=== PATIENT | male | born 1965 | race Caucasian/White ===

== ENCOUNTER → 2016-07-20 | Outpatient (CLI) | payer BC | END | disposition home or self-care (01) | LOC: LABPAT 14:41 | PROVIDERS: ATTEND Orthopaedic Surgery | DX: Z01.810 Encounter for preprocedural cardiovascular examination (principal); Z01.812 Encounter for preprocedural laboratory examination; M17.12 Unilateral primary osteoarthritis, left knee | CPT/HCPCS: 85610; 85730; 87070 ==

== ENCOUNTER 2016-07-25 13:55 | Day surgery (SDC) | payer BC ==
[2016-07-20 10:51] VITALS: BMI 32.6
--- NOTE | 2016-07-24 11:24 | HP ---
DATE OF ADMISSION: CHIEF COMPLAINT: Left knee pain. 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 He notes increasing swelling and stiffness with activity. He has tried medications and injections with only partial temporary relief. PAST MEDICAL HISTORY: Significant for arthritis, gout and hypertension. PAST SURGICAL HISTORY: Negative. CURRENT MEDICATIONS: 1. Allopurinol. 2. Motrin. 3. Dwight. 4. Indocin. He denies drug allergies. FAMILY HISTORY: Significant for cancer and hypertension. SOCIAL HISTORY: Significant for previous alcohol use. A 16-point review of systems otherwise reviewed and is noncontributory. On examination, the patient is approximately 5 foot 8, 195 pounds of endomorphic habitus. HEENT exam is nonfocal. Neck is supple. He has painless passive motion of his left hip. Straight leg raise is negative. Active motion left knee -15 to 100 degrees of flexion. He is tender about the medial joint line. Collaterals are stable, Mark is negative, Akbar's elicits medial pain. He has genu varum alignment. His distal neurovascular exam appears be intact in the left lower extremity. Previous weight-bearing notch, lateral, and merchant views of left knee obtained in the office show severe medial and patellofemoral compartment narrowing with genu varum deformity. IMPRESSION: Left knee severe osteoarthrosis - primary. RECOMMENDATION: I talked to the patient at length regarding his treatment options. At this point, he opts to proceed with surgery. We will plan to proceed with left total knee arthroplasty. With the degree of deformity, will likely have to proceed with a more constrained implant. Risks and benefits are discussed at length in layman's terms. We will institute DVT prophylaxis postoperatively. The patient underwent preoperative cardiac evaluation by Dr. South.
[~2016-07-25 13:55] MED LIST: ACETAMINOPHEN TAB 500 MG TAB PO ONE; DEXAMETHASONE SOD PHOSPHATE 10 MG/ML 1 ML VIAL IV ONE; HYDROmorphone 1 MG/ML 1 ML SYRINGE IVP PRN; LACTATED RINGERS 1,000 ML IV SCH; MELOXICAM 7.5 MG TAB PO ONE; MIDAZOLAM 2 MG/2 ML VIAL IV PRN; ONDANSETRON 4 MG/2 ML VIAL IVP ONE; SCOPOLAMINE 1.5MG/72HR PATCH TRANSDERM ONE; TRANEXAMIC ACID 1,000 MG in SODIUM CHLORIDE 0.9% 100 ML IVPB ONE; ceFAZolin 2 GM in SODIUM CHLORIDE 0.9% 100 ML IVPB ONE
[2016-07-25 14:26] VITALS: PULSE 90; RESP 18; TEMP 97.9
[2016-07-25] MEDS ORDERED: LIDOCAINE 1% 20 ML VIAL (10MG/ML) FOR IV START INTRADERMA ONE (14:39)
[2016-07-25 14:59] VITALS: BP 182/104
== END 2016-07-25 15:25 | disposition home or self-care (01) ==
LOC: 2ORMAIN 13:55 → OR 13:55 → UNDOADMIN 13:55 → OR 15:25 → UNDODISIN 15:25 → EDSTATUS 15:45
PROVIDERS: ATTEND Orthopaedic Surgery
DX: M17.12 Unilateral primary osteoarthritis, left knee (principal); I10 Essential (primary) hypertension; Z53.09 Procedure and treatment not carried out because of other contraindication; M10.9 Gout, unspecified; M21.162 Varus deformity, not elsewhere classified, left knee; Z79.1 Long term (current) use of non-steroidal anti-inflammatories (NSAID); Z79.899 Other long term (current) drug therapy; Z79.82 Long term (current) use of aspirin; Z82.49 Family history of ischemic heart disease and other diseases of the circulatory system
CPT/HCPCS: 85610; 85730; 87070

== ENCOUNTER 2016-08-08 12:11 | Inpatient (IN) | payer BC ==
[~2016-08-08 12:11] MED LIST changes: -LACTATED RINGERS 1,000 ML IV SCH; +LIDOCAINE 1% 20 ML VIAL (10MG/ML) FOR IV START INTRADERMA PRN
[2016-08-08] MEDS: LACTATED RINGERS 1,000 ML IV SCH (12:42)
[2016-08-08] MEDS ORDERED: ROPIVACAINE 1,100 MG, SODIUM CHLORIDE 0.9% 330 ML MISCELLANE PRN ×2 (13:13)
--- NOTE | 2016-08-08 13:15 | P.ONQ ---
Anesthesiology Proc Note - PNB - Peripheral Nerve Block Performed Left Adductor Canal Indication: Acute Post-Operative Pain, Requested by physician (Jc) Sedation Type: Sedate with meaningful contact maintained Preparation: Sterile Dressing Position: Supine Catheter: Indwelling Needle Types: On-Q Needle Size: 100mm (4") Needle Gauge: 20 Technique: Ultrasound Injectate: 0.5% Ropivacaine (see comment for volume) (20cc) Blood Aspirated: No Pain Paresthesia on Injection Noted: No Resistance on Injection: Normal Events: Uneventful and Well Tolerated
[2016-08-08] MEDS ORDERED: MIDAZOLAM 2 MG/2 ML VIAL ONE (14:02)
[2016-08-08] MEDS ORDERED: fentaNYL (PF) 50 MCG/ML 2 ML AMP ONE (14:02)
[2016-08-08] MEDS ORDERED: ePHEDrine 50 MG/ML 1 ML AMP ONE (14:02)
[2016-08-08] MEDS ORDERED: TRANEXAMIC ACID 1,000 MG/10 ML VIAL ONE (14:02)
[2016-08-08] MEDS ORDERED: PROPOFOL 10 MG/ML 20 ML VIAL IV ONE (14:02)
[2016-08-08] MEDS ORDERED: SODIUM CHLORIDE 0.9% 100 ML BAG ONE (14:02)
[2016-08-08] MEDS ORDERED: PHENYLEPHRINE-0.9% NACL SYG 1 MG/10 ML SYRINGE ONE (14:02)
[2016-08-08] MEDS ORDERED: ceFAZolin 3,000 MG in SODIUM CHLORIDE 0.9% IRRIGATIO 3,000 ML IRRIGATION ONE (14:43)
[2016-08-08] MEDS ORDERED: LACTATED RINGERS 1,000 ML IV ONE ×2 (14:43→16:00)
[2016-08-08] MEDS ORDERED: ROPIVACAINE 246.25 MG, EPINEPHrine 0.5 MG, KETOROLAC 30 MG, cloNIDine HCL/PF 80 MCG, WA... MISCELLANE ONE ×5 (15:11)
[2016-08-08] MEDS ORDERED: NALOXONE 0.4 MG/ML 1 ML VIAL IV PRN (16:13)
[2016-08-08] MEDS ORDERED: HYDROmorphone 1 MG/ML 1 ML SYRINGE IVP PRN ×2 (16:13)
[2016-08-08] MEDS ORDERED: MAGNESIUM HYDROXIDE 2,400 MG/10 ML CUP PO PRN (16:13)
[2016-08-08] MEDS ORDERED: HYDROcodone/APAP 10-325MG 1 EACH TAB PO PRN (16:13)
[2016-08-08] MEDS ORDERED: ONDANSETRON 4 MG/2 ML VIAL IVP PRN (16:13)
--- NOTE | 2016-08-08 16:47 | P.OP ---
Date of Procedure: 08/08/16 Preoperative Diagnosis: Left knee severe tricompartmental osteoarthrosis-primary Postoperative Diagnosis: Same Procedure(s) Performed: Left total knee aytbjjyeocut-avnhjvjy-icmrfseoe substituting Implants: Depuy Attune size 8 cemented femoral component, size 7 cemented tibial component , 11 mm articular surface, 38 mm cemented patellar component. This is a posterior stabilized implant. Anesthesia: spinal Surgeon: Filipe Greene Sales Office Administrator #1: Carlos Patel Estimated Blood Loss (ml): 75 Pathology: other (Bone fragments) Condition: stable Disposition: PACU Indications for Procedure: The patient is a 51-year-old male presents with progressive left knee pain secondary to osteoarthrosis despite extensive conservative measures. A discussion of the risks and benefits of operative intervention versus continued conservative measures was made with the patient. He opted to proceed with surgery. Operative risks to include infection, neurovascular injury, development of blood clots, possible component loosening, possible component failure need for subsequent procedures was discussed. Informed consent was obtained. Operative Findings: Severe tricompartmental osteoarthrosis with genu varum deformity Description of Procedure: The patient was brought to the operating room, and after induction of spinal anesthesia the left lower extremity was prepped and draped in a normal fashion. The tourniquet was inflated to 270 mm marker. A longitudinal incision extending 3 finger breadths above the superior pole of the patella extending to the medial aspect of the tibial tubercle was then made. The skin and subcutaneous tissues were divided sharply. Electrocautery was used for hemostasis. A medial parapatellar arthrotomy is performed. The medial soft tissues to include the superficial and deep portions of the medial collateral ligament as well as the medial hamstring tendons were elevated subperiosteally. The posterior medial capsule was also elevated and the osteophytes of the proximal medial tibial carefully removed. The patella was everted. A portion of the retropatellar fat pad was excised sharply. The knee was then flexed. The anterior cruciate ligament was already ruptured. Blunt retractors were placed. A starting hole was made in the distal femur 1 cm anterior to the posterior cruciate ligament origin. An intramedullary femoral guide was inserted planning on 5 valgus distal cut was 9 mm distal resection. The cutting block was pinned in place. The anterior, posterior, and chamfer cuts were then made. The bone fragments were then removed. The box cut was then made with the reciprocating saw for the posterior stabilized implant. The trial component was then placed and was fully seated. There was good medial to lateral and anterior to posterior fit. The distal peg holes were drilled. The trial component was removed. Attention was then paid towards preparing the proximal tibia. An extra medullary guide was utilized in line with the tibial shaft and second metatarsal distally. I planned on a 0 posterior slope. I also planned on 2 mm resection from the medial compartment. The cutting block was pinned in place. The proximal tibial cut was then made. The tibia sized most appropriately at a size 7. An additional 2 mm was resected as this was not adequate resection. The remnants of the medial lateral menisci were excised at the capsular junction with electrocautery. The posterior osteophytes off the distal femur were carefully removed with a curved osteotome. The trial femoral and tibial components were placed along with an 11 mm articular surface. I did piecrust a portion of the medial collateral ligament for additional medial release. I was able to obtain full flexion and extension with good stability with varus and valgus stress. After several flexion and extension cycles, the tibial rotation was marked with Dr. dupree in line with the medial one third of the tibial tubercle. Attention was then paid towards preparing the patella. A patella reamer was utilized taking this down to 14 mm of bone stock. A good flush cut was made. The patella sized most appropriately 38 mm. The peg holes were drilled. The trial component was placed and the knee was taken through range of motion. The trial components were then removed. The posterior soft tissues were injected with ropivacaine. The flexion and extension gaps were checked and felt to be symmetric. I made several additional drill holes through the posterior medial tibia facilitate cement interdigitation. The bony surfaces were prepared with pulsatile lavage and then dried. The tibial component was then cemented in placed and was fully seated. Excess cement was removed. The femoral component cemented placed and was fully seated. Excess cement was removed. The trial 11 mm articular surface was placed and the knee was put in full extension. The patella component cemented in placed and was fully seated. After the cement especially hardened, the knee was again taken through range of motion. Again I was stable in flexion and extension with varus and valgus stress. The trial articular surface was removed and the final 11 mm articular surface was placed. This was fully seated. Care was taken to avoid any soft tissue interposition. Pulsatile lavage was utilized. The medial parapatellar arthrotomy was closed with #2 Ethibond suture. Prior to final arthrotomy closure the tourniquet was deflated with approximately 75 minutes total tourniquet time. The second dose of IV TXA was given. The subcutaneous tissues were reapproximated with interrupted 2-0 Vicryl sutures. The skin was reapproximated with 3-0 subcuticular strata fix suture. Skin tape and adhesive was applied. A sterile dressing was applied. The patient was awoken from sedation and transferred to the recovery room in good condition. Blood loss was estimated 75 mL. No complications were incurred. Sponge and needle counts were correct at the end the case.
--- NOTE | 2016-08-08 17:10 | XR ---
EXAMINATION TYPE: XR knee limited LT DATE OF EXAM: 08/08/2016 4:52 PM COMPARISON: NONE HISTORY: 51-year-old male evaluate for postoperative abnormality and alignment TECHNIQUE: Portable AP and crosstable lateral views FINDINGS: Images show placement of left total knee arthroplasty. Both distal femoral and proximal tibial compon ents of the prosthesis appear well seated without periprosthetic fracture. There is anterior soft tis jojo swelling and soft tissue gas as well as intra-articular air and joint effusion compatible with re cent operation. Surgical drain is in place. IMPRESSION: Uncomplicated postoperative appearance left total knee arthroplasty.
[2016-08-08 17:50] VITALS: BMI 31.4
[2016-08-08] MEDS: traMADol 50 MG TAB PO SCH ×2 (18:12→22:20)
[2016-08-08] MEDS: hydrOXYzine PAMOATE 25 MG CAP PO PRN (19:19)
[2016-08-08] MEDS: HYDROcodone/APAP 10-325MG 1 EACH TAB PO PRN (19:20)
[2016-08-08] MEDS ORDERED: SENNOSIDES-DOCUSATE SODIUM 1 EACH TAB PO SCH (21:00)
[2016-08-08] MEDS ORDERED: ALLOPURINOL 100 MG TAB PO PRN (21:49)
[2016-08-08] MEDS: amLODIPine 5 MG TAB PO SCH (22:20)
[2016-08-08] MEDS: LOSARTAN 50 MG TAB PO SCH (22:20)
[2016-08-08] MEDS: METOPROLOL TARTRATE 50 MG TAB PO SCH (22:20)
[2016-08-09] MEDS: hydrOXYzine PAMOATE 25 MG CAP PO PRN ×3 (00:25→12:47)
[2016-08-09] MEDS: ceFAZolin 2 GM in SODIUM CHLORIDE 0.9% 100 ML IVPB SCH ×2 (00:26→07:26)
[2016-08-09] MEDS: HYDROcodone/APAP 10-325MG 1 EACH TAB PO PRN ×3 (00:26→12:45)
[2016-08-09 00:39] VITALS: RESP 16
[2016-08-09 07:17] LABS: Basophils % (A) 0 %; CH 33.1; CHCM 33.6; Eosinophils # (A) 0.1 k/uL (0-0.7); Eosinophils % (A) 0 %; HCT 39.3 % (39.0-53.0); HDW 2.51; HGB 13.1 gm/dL (13.0-17.5); Luc # (Auto) 0.13; Luc % (Auto) 1; Lymphocytes # (A) 1.7 k/uL (1.0-4.8); Lymphocytes % (A) 9 %; MCH 32.9 pg (25.0-35.0); MCHC 33.3 g/dL (31.0-37.0); MCV 98.8 fL (80.0-100.0); Mean Platelet Volume 6.7; Monocytes # (A) 1.1 k/uL (0-1.0); Monocytes % (A) 6 %; Neutrophils # (A) 15.2 k/uL (1.3-7.7); Neutrophils % (A) 84 %; RBC 3.97 m/uL (4.30-5.90); RDW 13.3 % (11.5-15.5); WBC 18.2 k/uL (3.8-10.6); WBC (Perox) 19.17
[2016-08-09] MEDS: METOPROLOL TARTRATE 50 MG TAB PO SCH (07:24)
[2016-08-09] MEDS: traMADol 50 MG TAB PO SCH ×2 (07:24→12:46)
[2016-08-09] MEDS: amLODIPine 5 MG TAB PO SCH (07:24)
[2016-08-09] MEDS: LOSARTAN 50 MG TAB PO SCH (07:24)
[2016-08-09] MEDS: LACTATED RINGERS 1,000 ML IV SCH (07:26)
--- NOTE | 2016-08-09 07:30 | P.PN ---
Progress Note - Text The patient is status post, left adductor canal catheter placement. The catheter was placed for postoperative pain control, status post total left arthroplasty. Ropivacaine 0.2% is infusing at 8 mLs per hour. The patient has no complaints of left lower extremity numbness or weakness. Patient's VAS score is 0 -10. Assessment: Patient's adductor canal catheter is in place and working appropriately. Plan: continue infusion and adjust it as needed.
[2016-08-09 07:44] VITALS: BP 118/79; PULSE 68; TEMP 97.6
[2016-08-09] MEDS ORDERED: HYDROCHLOROTHIAZIDE 25 MG TAB PO SCH (09:00)
[2016-08-09] MEDS ORDERED: RIVAROXABAN 10 MG TAB PO SCH (09:00)
[2016-08-09] MEDS ORDERED: FAMOTIDINE 20 MG TAB PO SCH (09:00)
--- NOTE | 2016-08-09 11:12 | P.DS ---
Providers Date of admission: 08/08/16 12:11 Expected date of discharge: 08/09/16 Attending physician: Filipe Greene Consults: 08/08/16 16:13 Consult Physician Routine Consulting Provider: Zayda Carr Consult Reason/Comments: Medical management Do you want consulting provider notified?: Yes Primary care physician: Dayne Alarcon [facility] Course: Date of admission: 08/08/2016 Date of discharge: 08/09/2016 Admission diagnosis: Status post left total knee arthroplasty Discharge diagnosis: Same Attending physician: Dr. Greene Surgical procedures: Left total knee arthroplasty Brief history: Patient is a 51-year-old male with a history of progressive primary left knee osteoarthritis. At this point patient has failed conservative treatment measures and has opted to proceed with a elective total knee arthroplasty. Hospital course: Details of patient's surgery can be found in operative report. Patient tolerated the procedure well and was subsequently transported to orthopedic floor. Patient's orthopeidc and medical care was provided daily. Patient had daily laboratory tests performed for evaluation of overall blood counts. Patient had daily physical therapy to include strengthening range of motion as well as education with walker ambulation. Patient was treated with Xarelto for their postoperative DVT prophylaxis during their inpatient stay. Patient was noted to have a relatively uneventful postoperative course. Patient reported satisfactory pain control with oral pain medications by postoperative day 0. Patient showed satisfactory progress with physical therapy. Patient moved steadily through the program and had no difficulty meeting the goals by postoperative day 1. Given patient's otherwise satisfactory course and having met physical therapy goals, plan is to discharge patient home on postoperative day 1. Discharge condition/disposition: Patient will be discharged home in stable condition. Discharge medications: Instructions are given on resumption of patient's normal daily medications per primary care recommendation, in addition patient will be prescribed [place] 10 mg/325 mg, tramadol 50 mg, Colace 100 mg, Pepcid 20 mg, Xarelto 10 mg. Discharge instructions: 1. Wound care and infection precautions, keep incision dry and covered while showering, no lotions, creams, moisturizers. No soaking, tubs, pools, hottubs. Do not scrub over the incision. 2. Weight-bear as tolerated with walker / cane until follow-up. 3. Ice and elevate when necessary. Do not exceed 20 minutes per hour with ice pack. 4. Utilize compression sleeve until seen at first follow up appointment. 5. Visiting nursing care. 6. Home physical therapy including home CPM. 7. Pain meds and anticoagulants per prescription. 8. Pain medication has potential to cause constipation. Increase oral fluid and fiber intake. Contact primary care provider if you have not had a bowel movement within 48 hours after discharge 9. No anti-inflammatory medication until discussed at first post operative visit, this including Motrin, Aleve, Mobic, Diclofenac. 10. Follow up in office at 2 weeks postop with Torey Patel PA-C 11. Follow up with your primary care doctor 7-10 days after discharge. 12. Contact [facility] with any questions, . Procedures: Left total knee arthroplasty Patient Condition at Discharge: Good Plan - Discharge Summary New Discharge Prescriptions: Docusate [Colace] 100 mg PO DAILY #20 capsule Famotidine [Pepcid] 20 mg PO DAILY #20 tablet Hydrocodone/Acetaminophen [[place] 10-325] 1 each PO Q6H PRN #60 tab PRN Reason: Pain Rivaroxaban [Xarelto] 10 mg PO DAILY #12 tab traMADol HCl [Ultram] 50 mg PO Q6H PRN #40 tab PRN Reason: Pain Discharge Medication List Allopurinol [Zyloprim] 100 mg PO DAILY PRN 07/20/16 [History] Aspirin 81 mg PO DAILY 07/20/16 [History] HYDROcodone/APAP 10-325MG [[place] 10-325] 1 tab PO Q6H PRN 07/20/16 [History] Indomethacin [Indocin] 50 mg PO BID PRN 07/20/16 [History] amLODIPine [Norvasc] 5 mg PO BID 08/07/16 [History] Hydrochlorothiazide [Hydrodiuril] 25 mg PO DAILY 08/08/16 [History] Losartan Potassium [Cozaar] 50 mg PO BID 08/08/16 [History] Metoprolol Tartrate [Lopressor] 50 mg PO BID 08/08/16 [History] Rivaroxaban [Xarelto] 10 mg PO DAILY #12 tab 08/08/16 [Rx] Docusate [Colace] 100 mg PO DAILY #20 capsule 08/09/16 [Rx] Famotidine [Pepcid] 20 mg PO DAILY #20 tablet 08/09/16 [Rx] Hydrocodone/Acetaminophen [[place] 10-325] 1 each PO Q6H PRN #60 tab 08/09/16 [Rx] traMADol HCl [Ultram] 50 mg PO Q6H PRN #40 tab 08/09/16 [Rx] Follow up Appointment(s)/Referral(s): Carlos Patel 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 Wound care and infection precautions, keep incision dry and covered while showering, no lotions, creams, moisturizers. No soaking, pools, hot tubs. Do not scrub over incision. 2. Weight-bear as tolerated with walker / cane until follow-up. 3. Ice and elevate when necessary. Do not exceed 20 minutes per hour with ice pack. 4. Utilize compression sleeve until seen at first follow up appointment. 5. Visiting nursing care. 6. Home physical therapy including home CPM. 7. Pain meds and anticoagulants per prescription. 8. Pain medication has potential to cause constipation. Increase oral fluid and fiber intake. Contact primary care provider if you have not had a bowel movement within 48 hours after discharge. 9. No anti-inflammatory medication until discussed at first post operative visit, this including Motrin, Aleve, Mobic, Diclofenac. 10. Follow up in office at 2 weeks postop with Torey Patel PA-C 11. Follow up with your primary care doctor 7-10 days after discharge. 12. Contact [facility] with any questions, . pt has Xarupalito in the pharmacy, pt has a $30.00 co-pay Discharge Disposition: HOME WITH HOME HEALTH SERVICES
--- NOTE | 2016-08-09 11:12 | P.PN ---
Subjective Principal diagnosis: s/p left tka Patient doing well at this point, no acute complaints. Pain well controlled. He has ambulated well at this point, urinary catheter removed. Denies chest pain, shortness of breath, fever or chills. Objective - Vital Signs Vital signs: Vital Signs Temp 97.6 F 08/09/16 07:00 Pulse 68 08/09/16 07:00 Resp 16 08/09/16 07:00 BP 118/79 08/09/16 07:00 Pulse Ox 97 08/09/16 07:00 Intake & Output 08/08/16 08/09/16 08/09/16 18:59 06:59 18:59 Intake Total 2311 240 Output Total 150 900 200 Balance 2161 -900 40 Weight 93.894 kg Intake: IV 2311 Oral 240 Output: Drainage 300 Left Knee 300 Urine 75 600 200 Uretheral (Rollins) 200 Estimated Blood Loss 75 Other: Voiding Method Indwelling Catheter Indwelling Catheter # Bowel Movements 0 - Exam Left lower extremity: Incision is clean dry and intact. Calf soft no tenderness with palpation. Plantar flexion, dorsiflexion, EHL, FHL intact. Sensory exam to lite touch intact, dorsal pedis pulse is 2+. - Labs CBC & Chem 7: 08/09/16 06:47 Labs: Abnormal Lab Results - Last 24 Hours (Table) 08/09/16 Range/Units 06:47 WBC 18.2 H (3.8-10.6) k/uL RBC 3.97 L (4.30-5.90) m/uL Neutrophils # 15.2 H (1.3-7.7) k/uL Monocytes # 1.1 H (0-1.0) k/uL Assessment and Plan Plan: Assessment: 1. Post op day #1 s/p left tka Plan: 1. Pain control, continue use of oral medication 2. Daily dressing changes 3. Ice and elevate 4. Encourage incentive spirometer 5. GI and DVT prophylaxis, continue Xarelto 6. Medical management 7. Likely discharged home today Time with Patient: Less than 30
--- NOTE | 2016-08-09 21:38 | P.CONS ---
History of Present Illness - Reason for Consult Consult date: 08/09/16 Medical management Requesting physician: Filipe Greene - History of Present Illness This is a 51-year-old gentleman patient of Dr. Hernandez and Dr. Ng, he has underlying history of hypertension, diastolic dysfunction followed by Dr. South, he was admitted to the service of the orthopedics to have a left total knee arthroplasty done after years off failing conservative measures and ongoing instability of the knee, previous sports injury in the past. Patient's doing well clinically he is currently receiving Xarelto for DVT prophylaxis, incentive spirometry, no chest pain no shortness of breath, pain is controlled and has a pain pump placed on the left thigh for which he is going to go home for additional pain control Review of Systems Constitutional: Reports as per HPI, Denies anorexia, Denies chills, Denies chronic headaches, Denies chronic pain, Denies daytime sleepiness, Denies fatigue, Denies fever, Denies lethargy, Denies malaise, Denies night sweats, Denies poor appetite, Denies sweats, Denies weakness, Denies weight gain, Denies weight loss Ears, nose, mouth and throat: Reports as per HPI, Denies ant. neck pain, Denies bleeding gums, Denies dental pain, Denies dysphagia, Denies epistaxis, Denies headache, Denies hoarseness, Denies mouth pain, Denies nasal congestion, Denies nasal discharge, Denies neck fullness/pressure, Denies neck lump, Denies nose pain, Denies odynophagia, Denies post-nasal drip, Denies sinus pain, Denies sinus pressure, Denies swelling in mouth, Denies swelling in throat, Denies sore throat, Denies vertigo, Denies voice changes Cardiovascular: Reports as per HPI, Denies chest pain, Denies claudication, Denies decreased exercise tolerance, Denies dyspnea on exertion, Denies edema, Denies high blood pressure, Denies irregular heart beat, Denies leg edema, Denies lightheadedness, Denies orthopnea, Denies palpitations, Denies paroxysmal nocturnal dyspnea, Denies phlebitis, Denies rapid heart beat, Denies shortness of breath, Denies syncope Respiratory: Reports as per HPI, Denies congestion, Denies cough, Denies cough with sputum, Denies dyspnea, Denies excessive sputum, Denies hemoptysis, Denies home oxygen, Denies pain, Denies pain on inspiration, Denies pleurisy, Denies respiratory infections, Denies sleep apnea, Denies snoring, Denies wheezing Gastrointestinal: Reports as per HPI, Denies abdominal pain, Denies belching, Denies bloating, Denies BRBPR, Denies change in bowel habits, Denies coffee ground emesis, Denies constipation, Denies diarrhea, Denies dyspepsia, Denies early satiety, Denies excessive gas, Denies heartburn, Denies hematemesis, Denies hematochezia, Denies indigestion, Denies jaundice, Denies lactose intolerance, Denies loss of appetite, Denies melena, Denies nausea, Denies vomiting Genitourinary: Reports as per HPI, Denies decreased libido, Denies difficulties fathering child, Denies discharge, Denies dysuria, Denies erectile dysfunction, Denies flank pain, Denies genital pain, Denies genital sores, Denies hematuria, Denies impotence, Denies incontinence, Denies kidney stones, Denies nocturia, Denies polyuria, Denies testicular lump, Denies testicular pain, Denies urinary frequency, Denies urinary hesitancy, Denies urinary retention Musculoskeletal: Reports as per HPI, Reports limitation of motion, Denies arm numbness/tingling, Denies atrophy, Denies fractures, Denies frequent falls, Denies gait dysfunction, Denies hot joints, Denies leg numbness/tingling, Denies loss of height, Denies low back pain, Denies morning stiffness, Denies muscle cramps, Denies muscle weakness, Denies myalgias, Denies neck pain, Denies neck stiffness, Denies prior amputations, Denies redness of joints, Denies shooting arm pain, Denies shooting leg pain Integumentary: Reports as per HPI, Denies acne, Denies boils, Denies brittle nails, Denies change in hair/nails, Denies color changes, Denies darkening of skin, Denies depigmentation, Denies dryness, Denies foot/leg ulcers, Denies growths, Denies hirsutism, Denies lesions, Denies onychomycosis, Denies pruritus , Denies rash, Denies sores, Denies striae, Denies unusual bruising, Denies wounds Neurological: Reports as per HPI, Denies aphasia, Denies ataxia, Denies balance difficulties, Denies burning pain, Denies change in mentation, Denies change in smell/taste, Denies change in speech, Denies confusion, Denies convulsions, Denies double vision, Denies gait dysfunction, Denies head injury, Denies headaches, Denies hearing difficulties, Denies lack of coordination, Denies loss of vision, Denies memory loss, Denies migraines, Denies motor disturbance, Denies numbness, Denies paralysis, Denies paresthesias, Denies seizures, Denies sensory deficit, Denies spasticity, Denies syncope, Denies tic, Denies tingling , Denies transient paralysis, Denies tremors, Denies vertigo, Denies weakness, Denies visual changes Psychiatric: Reports as per HPI, Denies anhedonia, Denies anxiety, Denies anxiety attacks, Denies change in appetite, Denies change in libido, Denies change in sleep habits, Denies confusion, Denies depression, Denies difficulty concentrating, Denies disorientation, Denies hallucinations, Denies hopelessness , Denies hypersomnia, Denies insomnia, Denies irritability, Denies memory loss, Denies mood swings, Denies paranoia, Denies sadness/tearfulness, Denies sleep disturbances, Denies suicidal ideation Endocrine: Reports as per HPI Hematologic/Lymphatic: Reports as per HPI Allergic/Immunologic: Reports as per HPI Past Medical History Past Medical History: Hypertension, Osteoarthritis (OA) Additional Past Medical History / Comment(s): hx. gout, total knee surgery was recently rescheduled from 07-25-16 due to elevated BP in pre-op History of Any Multi-Drug Resistant Organisms: None Reported Past Surgical History: No Surgical Hx Reported Additional Past Anesthesia/Blood Transfusion Reaction / Comm: has never had anesthesia, no family problems with Past Psychological History: No Psychological Hx Reported Smoking Status: Former smoker Past Alcohol Use History: Daily Additional Past Alcohol Use History / Comment(s): quit smoking 30 yrs. ago, smoked <10 yrs. per spouse Past Drug Use History: None Reported - Past Family History Mother Family Medical History: No Reported History Medications and Allergies Home Medications Medication Instructions Recorded Confirmed Type Allopurinol [Zyloprim] 100 mg PO DAILY PRN 07/20/16 08/08/16 History Aspirin 81 mg PO DAILY 07/20/16 08/08/16 History HYDROcodone/APAP 10-325MG [Evans 1 tab PO Q6H PRN 07/20/16 08/08/16 History 10-325] Indomethacin [Indocin] 50 mg PO BID PRN 07/20/16 08/08/16 History amLODIPine [Norvasc] 5 mg PO BID 08/07/16 08/08/16 History Hydrochlorothiazide [Hydrodiuril] 25 mg PO DAILY 08/08/16 08/08/16 History Losartan Potassium [Cozaar] 50 mg PO BID 08/08/16 08/08/16 History Metoprolol Tartrate [Lopressor] 50 mg PO BID 08/08/16 08/08/16 History Allergies Allergy/AdvReac Type Severity Reaction Status Date / Time No Known Allergies Allergy Verified 08/07/16 08:42 Physical Exam Vitals: Vital Signs Temp Pulse Pulse Resp BP Pulse Ox 08/09/16 07:00 97.6 F 68 16 118/79 97 08/09/16 00:38 97.4 F L 73 16 126/80 96 08/08/16 17:50 97.6 F 71 17 119/82 94 L 08/08/16 17:41 97.6 F 74 15 119/82 99 08/08/16 17:30 71 16 126/69 98 08/08/16 17:15 69 16 115/65 98 08/08/16 17:00 73 16 136/79 96 08/08/16 16:45 75 16 132/69 98 08/08/16 16:39 97.0 F L 72 16 125/70 97 Intake and Output 08/08/16 08/09/16 08/09/16 22:59 06:59 14:59 Intake Total 210 240 Output Total 300 750 200 Balance -90 -750 40 Intake: IV 210 Oral 240 Output: Drainage 150 150 Left Knee 150 150 Urine 75 600 200 Uretheral (Rollins) 200 Estimated Blood Loss 75 Other: Voiding Method Indwelling Catheter Indwelling Catheter # Bowel Movements 0 Weight 93.894 kg - Constitutional General appearance: cooperative, no acute distress, obese - EENT Eyes: anicteric sclerae, EOMI, PERRLA, dentition normal, normal appearance ENT: hearing grossly normal, NA/AT, normal oropharynx - Neck Neck: no lymphadenopathy, normal ROM, no other, no rigidity, no stridor, no thyromegaly Thyroid: bilateral: normal size - Respiratory Respiratory: bilateral: CTA, negative: diminished, dullness, rales, rhonchi, wheezing, prolonged expiration - Cardiovascular Rhythm: regular Heart sounds: normal: S1, S2 Abnormal Heart Sounds: no systolic murmur, no diastolic murmur, no rub, no S3 Gallop, no S4 Gallop, no click, no other - Gastrointestinal General gastrointestinal: normal bowel sounds, soft - Integumentary Integumentary: decreased turgor, normal - Musculoskeletal Musculoskeletal: gait normal, strength equal bilaterally - Psychiatric Psychiatric: A&O x's 3, appropriate affect, intact judgment & insight Results CBC & Chem 7: 08/09/16 06:47 Labs: Abnormal Lab Results - Last 24 Hours (Table) 08/09/16 Range/Units 06:47 WBC 18.2 H (3.8-10.6) k/uL RBC 3.97 L (4.30-5.90) m/uL Neutrophils # 15.2 H (1.3-7.7) k/uL Monocytes # 1.1 H (0-1.0) k/uL Laboratory Results WBC 18.2 k/uL (3.8-10.6) H 08/09/16 06:47 RBC 3.97 m/uL (4.30-5.90) L 08/09/16 06:47 Hgb 13.1 gm/dL (13.0-17.5) 08/09/16 06:47 Hct 39.3 % (39.0-53.0) 08/09/16 06:47 MCV 98.8 fL (80.0-100.0) 08/09/16 06:47 MCH 32.9 pg (25.0-35.0) 08/09/16 06:47 MCHC 33.3 g/dL (31.0-37.0) 08/09/16 06:47 RDW 13.3 % (11.5-15.5) 08/09/16 06:47 Plt Count 193 k/uL (150-450) 08/09/16 06:47 Neutrophils % 84 % 08/09/16 06:47 Lymphocytes % 9 % 08/09/16 06:47 Monocytes % 6 % 08/09/16 06:47 Eosinophils % 0 % 08/09/16 06:47 Basophils % 0 % 08/09/16 06:47 Neutrophils # 15.2 k/uL (1.3-7.7) H 08/09/16 06:47 Lymphocytes # 1.7 k/uL (1.0-4.8) 08/09/16 06:47 Monocytes # 1.1 k/uL (0-1.0) H 08/09/16 06:47 Eosinophils # 0.1 k/uL (0-0.7) 08/09/16 06:47 Basophils # 0.0 k/uL (0-0.2) 08/09/16 06:47 Assessment and Plan Plan: 1. Left total knee arthroplasty doing well, incentive spirometry program soon place along with DVT prophylaxis using sterile toe, patient's anticipated to be discharged home today he is progressing very well with therapies, family members at home to assist with history of coronary 2. Diastolic dysfunction based on recent echocardiogram, stable 3. Hypertension controlled on losartan 50 mg twice a day Norvasc 5 mg twice a day Hydrea diarrheal 25 mg daily 4 gout without any exacerbation on maintenance allopurinol 5. GI prophylaxis on Xarelto Colace and Pepcid Thank you Dr. Ng in allowing us to participate in the care of your patient. Patient is clinically stable for discharge PCP to follow in 1 week with any changes off his health is requested to be seen earlier
== END 2016-08-09 15:16 | disposition home health service (06) | DRG 470 ==
LOC: 2ORMAIN 12:11 → 3SUR 16:12
PROVIDERS: ADMIT Orthopaedic Surgery; ATTEND Orthopaedic Surgery
PROC: 0SRD0J9 Replacement of Left Knee Joint with Synthetic Substitute, Cemented, Open Approach (ICD-10-PCS; principal; 2016-08-08 13:35)
DX: M17.12 Unilateral primary osteoarthritis, left knee (principal); I10 Essential (primary) hypertension; I51.9 Heart disease, unspecified; M10.9 Gout, unspecified; Z87.891 Personal history of nicotine dependence; M21.162 Varus deformity, not elsewhere classified, left knee; Z79.82 Long term (current) use of aspirin; Z79.899 Other long term (current) drug therapy
CPT/HCPCS: 85025; 88300